=== PATIENT | male | born 1975 | race Hispanic/Latino ===

== ENCOUNTER 2023-03-07 18:32 | Emergency (ER) | payer OTHER ==
[~2023-03-07] VITALS: Ht 167.6 cm; Wt 86.2 kg
[2023-03-07] MEDS ORDERED: KETOROLAC TROMETHAMINE 60 MG/2 ML VIAL IM ONE (19:15)
[2023-03-07] MEDS ORDERED: MUCINEX DM ER1 EACH PO (21:17)
[2023-03-07] MEDS ORDERED: IBUPROFEN600 MG PO (21:17)
[2023-03-07] MEDS ORDERED: FLONASE ALLERG9.9 ML INH (21:17)
== END 2023-03-07 21:21 | disposition home or self-care (01) ==
LOC: ER 18:39
DX: R05.9 Cough, unspecified (principal); J20.9 Acute bronchitis, unspecified; M94.0 Chondrocostal junction syndrome [Tietze]; E03.9 Hypothyroidism, unspecified; Z20.822 Contact with and (suspected) exposure to COVID-19
CPT/HCPCS: 71046; 99283; J1885; U0002